=== PATIENT | female | born 1940 | race Caucasian/White ===

== ENCOUNTER 2016-10-02 11:40 | Emergency (ER) | payer MEDICARE ==
[~2016-10-02] VITALS: Ht 162.6 cm; Wt 61.4 kg
[2016-10-02 11:48] VITALS: BP 128/62; PULSE 68; RESP 16; O2SAT 100
--- NOTE | 2016-10-02 12:59 | ED.REPORT ---
HPI-Trauma Minor / Fall Date of Service October 02, 2016 ED Provider: Elroy Gutierrez MD The patient is a 76 year old female who was brought to the emergency department by EMS after she had a ground level fall at home [facility]. The patient accidentally ran into her and tripped over him. She fell to the ground and landed on her back. She complains of lower back pain. She did not hit her head or lose consciousness. She was able to walk after the injury. The pain is worse in a sitting position and with deep breaths. She denies weakness, numbness , tingling, or bladder or bowel incontinence. Nursing Notes Stated Complaint: FALL,BACK PAIN Chief Complaint: Multiple Trauma/Fall Nursing Notes Reviewed: Yes Allergies: Coded Allergies: No Known Allergies (Unverified , 10/02/16) Scheduled PRN Cyclobenzaprine (Cyclobenzaprine) 5 Mg Tablet 5 MG PO HS PRN PRN Spasm Hydrocodone-Acetaminophen 5-325 mg (Hydrocodone-Acetaminophen 5-325 mg) 1 Each Tablet 1 TABLET PO Q4H PRN PRN For Pain General Time Seen by MD: 12:54 Chief Complaint Fall Hx Obtained From: Patient, Spouse, EMS Arrived By: Ambulance Onset Occurred: Just prior to arrival Symptom Duration: Since onset Location: Back Quality: Painful Severity: Current: Moderate Severity: Maximum: Severe Recent Healthcare: No recent hospitalization Similar Sx Previous: No Past Medical History Family History Noncontributory Smoking History Unknown if Ever Smoker Social History Other Social History: Good social support, , Local resident Ambulatory Status Independent Review of Systems Musculoskeletal: Reports: Back pain Neurologic: Denies: Bladder dysfunction, Bowel dysfunction, Change LOC, Focal weakness, Headache, Numbness, Problem walking, Syncope Complete sys rev & neg: except as marked. Physical Exam Initial Vital Signs Vital Signs (First) Date Time Temp Pulse Resp B/P Pulse Ox O2 Delivery O2 Flow Rate FiO2 10/02/16 11:48 36.6 68 16 128/62 100 Room Air Initial VS: Reviewed Head / Eyes: Atraumatic, Normocephalic, PERRL ENT: Mucous membranes moist, Conjunctiva normal, No scleral icterus Respiratory: Breath sounds normal, Clear to auscultation, No respiratory distress Cardiovascular: Regular rate & rhythm, Heart sounds normal, Intact distal pulses Abdomen / GI: Soft, Non-tender, No guarding, No rebound, No distention Extremities: Vascular intact, Neuro intact, No swelling, No tenderness Skin: Warm, Dry, No cyanosis Neurologic: Alert, Oriented, Nonfocal Psychiatric: Mood/affect normal, Behavior normal, Normal thought content General/Constitutional: Awake, Alert Neck: Atraumatic, Supple, Full range of motion, No swelling, Non-tender, No midline vertebral tend Back: No midline vertebral tend Diffuse lower back tenderness. Interpretation & Diagnostics L-SPINE CT IMPRESSION: 1. L2 acute to subacute fracture as above. 2. Multilevel degenerative changes including disc bulges, spinal stenosis and foraminal narrowing. Dictated by: Tasha Smith M.D. on 10/02/2016 at 14:53 X-Ray Interpretation Xray Interpretation: IMPRESSION: 1. Irregularity of the superior L2 endplate with mild vertical compression is suspicious for an acute fracture. However, clinical correlation is recommended. 2. Mild to moderate degenerative changes of the lumbar spine are more prominent involving the lower lumbar facet joints. Dictated by: Osbaldo Rios M.D. on 10/02/2016 at 12:48 Study Performed: Lumbar spine Interpretation / Wet Read by: Interpret - Radiologist Re-Eval/Medical Decision Med Decision/Clinical Course 76-year-old female presenting with ground-level fall and subsequent low back pain today. No red flag symptoms. CT does confirm L2 superior endplate fracture with compression. Her pain was controlled. I discussed with neurosurgery Dr. Acuña who thought patient be discharged home with follow-up with him in 1 month. No brace. Return precautions if any worsening pain, weakness, numbness, tingling, incontinence, saddle anesthesia. Patient's pain was controlled. Source of Hx: Old records, EMS, Family Re-Evaluation/Progress #1: Time of Eval: 13:06 Re-Evaluation/Progress Note: Discussed option for x-ray and pain medication. The patient would like to have an x-ray and something for pain. Re-Evaluation/Progress #2: Time of Eval: 15:22 Re-Evaluation/Progress Note: Rechecked the patient. Her pain has improved. Discussed CT results, diagnosis, and plan for discharge. All questions were addressed. Consultation : Referral / Consult Name: Shashank Acuña MD Consulted With: Neurosurgery Call Returned at: 15:02 Ground Control Approach Technician: Agrees with eval, Agrees with plan Note: The patient is okay to be discharged without a brace. She should followup with him in 1 month. Return for severe pain. Counseled Regarding: Diagnosis, Need for follow-up, When/why to return to ED Discharge & Departure Impression: Primary Impression: Fall from ground level Additional Impression: Lumbar vertebral fracture Encounter type: initial encounter Lumbar vertebra fracture level: L2 Fracture type: closed Fracture morphology: unspecified fracture morphology Qualified Code: S32.029A - Unspecified fracture of second lumbar vertebra, initial encounter for closed fracture Disposition: Home Discharge Condition All VS Reviewed: Yes Condition: Stable Patient Instructions: Acute Low Back Pain (GEN) Additional Instructions: Thank you for entrusting us with your care today. Your CT scan does show evidence of a L2 vertebral fracture. I spoke with the neurosurgeon, Dr. Acuña. He recommends discharge home and followup at his office in 1 month. Call his office today or tomorrow morning to schedule this appointment. If you need to go see someone through your HMO, you should followup with your primary care provider to get a referral to a neurosurgeon that is in your HMO. You do not need to wear a brace. You can use ibuprofen as needed for your pain and [place] as needed for your severe pain. You can also use the muscle relaxer as needed for muscle spasms. Do not drink alcohol, drive, or work while taking the [place] or muscle relaxer. Your pain should start to improve in the next few days. You may have a dull pain for the next several weeks. Do not lift objects that are over 10 pounds. Do not participate in activities that can cause further trauma. It is okay to walk and complete your daily activities as tolerated. Seek care sooner for increased pain, numbness, tingling, weakness, incontinence , inability to walk, or any other new or concerning symptoms. Referrals: Maylin Cheema MD (PCP) Shashank Acuña MD Attestation Portions of this note were transcribed by Allie Quintanilla. I, Dr. Gutierrez personally performed the history, physical exam and medical decision-making; I reviewed and confirmed the accuracy of the information in the transcribed note. Signed by: Socorro Bean, 10/02/2016 at 1600. copies to: Shashank Acuña MD; Maylin Cheema MD, Ben M MD October 02, 2016 12:59 Dwight,Allie Wallis October 02, 2016 13:07
--- NOTE | 2016-10-02 13:52 | DRSVH ---
PROCEDURE: X-RAY LUMBAR SPINE, 2 OR 3 VIEW INDICATIONS: trauma TECHNIQUE: 3 views of the lumbar spine were acquired. COMPARISON: None. FINDINGS: Bones: There are 5 lumbar-type vertebral bodies. The lowest intervertebral disk space is designated a s L5-S1. Mild concave deformity involving the superior L2 endplate is identified with mild irregular ity along the anterior cortex of this vertebral body. There is approximately 50% vertebral height lo ss. No retropulsion is evident. Otherwise, the remainder of the vertebral body heights are well-maint ained without evidence to suggest an acute compression fracture. The bone mineralization is within n ormal limits. Mild to moderate multilevel degenerative changes of the lumbar spine are primarily evident involving the lower lumbar facet joints. There is mild disc height loss involving multiple levels involved at the thoracolumbar junction and at the level of L5-S1. Otherwise, the remainder of the intervertebral disc spaces are well-maintained. There is grade 1 anterolisthesis of L4 and L5 without definite par s defects evident. Soft tissues: The soft tissues of the imaged abdomen and pelvis are within normal limits. IMPRESSION: 1. Irregularity of the superior L2 endplate with mild vertical compression is suspicious for an acut e fracture. However, clinical correlation is recommended. 2. Mild to moderate degenerative changes of the lumbar spine are more prominent involving the lower lumbar facet joints. Dictated by: Osbaldo Rios M.D. on 10/02/2016 at 12:48 Approved by: Osbaldo Rios M.D. on 10/02/2016 at 12:51
--- NOTE | 2016-10-02 14:57 | DRSVH ---
PROCEDURE: CT LUMBAR SPINE WITHOUT CONTRAST ([id number]) INDICATIONS: Trauma TECHNIQUE: Noncontrast 3 mm thick sections acquired from the T12 level to the sacrum. Sagittal and coronal refo rmats were constructed. For radiation dose reduction, the following was used: automated exposure co ntrol. COMPARISON: [facility], CR, XR LUMBAR SPINE 2 OR 3VW, 10/02/2016, 13:21. FINDINGS: Image quality: Excellent. There is a fracture of the superior endplate of L2, extending into the anterior and middle third of t he vertebral body. There is a compression deformity of the superior endplate. No retropulsion or spin al stenosis at this level secondary to fracture. No paravertebral hematoma. There is trace retrolisthesis of L1 on L2, L2 on L3, L3 on L4. Multilevel disc space narrowing is pre sent. Multilevel disc bulges are present throughout the lumbar spine. There is mild/moderate spinal s tenosis at L2-3, moderate L3-4: Mild to moderate L4-5. Multilevel foraminal narrowing is present seco ndary to uncovertebral arthropathy. Limited, visualized portions of the intra-abdominal and pelvic contents are unremarkable. Visualized portions of the lung bases are unremarkable. IMPRESSION: 1. L2 acute to subacute fracture as above. 2. Multilevel degenerative changes including disc bulges, spinal stenosis and foraminal narrowing. Dictated by: Tasha Smith M.D. on 10/02/2016 at 14:53 Approved by: Tasha Smith M.D. on 10/02/2016 at 14:56
[2016-10-02] MEDS ORDERED: CYCL5TAB PO (15:44)
[2016-10-02] MEDS ORDERED: HYDR-4003 PO (15:44)
[2016-10-02 16:04] VITALS: BP 122/60; PULSE 67; RESP 18; O2SAT 100
== END 2016-10-02 15:44 | disposition home or self-care (01) ==
LOC: EDBD 11:40 → SED 11:40
DX: S32.028A Other fracture of second lumbar vertebra, initial encounter for closed fracture (principal); W01.0XXA Fall on same level from slipping, tripping and stumbling without subsequent striking against object, initial encounter; Y93.89 Activity, other specified; Y92.513 Shop (commercial) as the place of occurrence of the external cause; Y99.8 Other external cause status
CPT/HCPCS: 72100; 72131; 96372; 99285; J1885